=== PATIENT | female | born 1985 | race Caucasian/White ===

== ENCOUNTER 2020-12-28 01:08 | Emergency (ER) | payer OTHER, SELFPAY ==
--- NOTE | 2020-12-28 01:42 | EDPHYS ---
Physician Documentation [facility] Name: Dolores Hood Age: 35 yrs Sex: Female : 1985 Arrival Date: 12/28/2020 Time: 01:14 Bed 10 Private MD: Giovani Perry HPI: 12/28 01:36 This 35 yrs old Female presents to ER via Ambulatory with complaints of BUG cp IN EAR. 01:36 The patient presents with pain, that is acute, possible bug in ear. The complaints cp affect the left ear. Onset: The symptoms/episode began/occurred last night. Associated signs and symptoms: The patient has no apparent associated signs or symptoms. 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 - Social history:: Smoking status: Patient denies any tobacco usage or history of. ROS: 01:37 Constitutional: Negative for body aches, chills, fever. cp 01:37 ENT: Positive for ear pain, possible bug in ear. 01:37 Respiratory: Negative for cough. 01:37 Abdomen/GI: Negative for nausea, vomiting, and diarrhea. 01:37 Neuro: Negative for headache. 01:37 All other systems are negative. Exam: 01:38 Head/Face: Normocephalic, atraumatic. cp 01:38 Constitutional: The patient appears in no acute distress, alert, awake, non-toxic, well developed, well nourished. 01:38 Eyes: Periorbital structures: appear normal, Conjunctiva: normal, no exudate, no injection, Lids and lashes: appear normal, bilaterally. 01:38 ENT: External ear(s): pain with movement, that is mild, of the left ear canal, Ear canal(s): bloody discharge, that is minimal, in the left canal, erythema, of the left canal, mild, swelling, that is minimal, of the left canal, TM's: are normal, no evidence of bulging, no erythema, dullness, on the left, Examination of the other ear shows no obvious abnormality. 01:38 Neck: ROM/movement: is normal, is supple, without pain, no range of motions limitations. 01:38 Chest/axilla: Inspection: normal. 01:38 Cardiovascular: Rate: normal. 01:38 Respiratory: the patient does not display signs of respiratory distress, Respirations: normal. Vital Signs: 01:18 BP 145 / 95; Pulse 99; Resp 18; Temp 98.7; Pulse Ox 100% on R/A; Weight 121.56 kg; wg Height 5 ft. 2 in. (157.48 cm); Pain 0/10; 01:18 Body Mass Index 49.02 (121.56 kg, 157.48 cm) wg MDM: 01:25 Patient medically screened. [facility] 01:39 Differential diagnosis: otitis media, otitis externa, ruptured TM, foreign body, cp cerumen impaction, barotrauma . Data reviewed: vital signs, nurses notes, and as a result, I will discharge patient. Administered Medications: No medications were administered Disposition: 01:45 Chart complete. cp Disposition Summary: 12/28/20 01:41 Discharge Ordered Location: Home cp Problem: new cp Symptoms: are unchanged cp Condition: Stable cp Diagnosis - Unspecified otitis externa, left ear cp Followup: cp - With: Naina Narvaez MD - When: 2 - 3 days - Reason: Worsening of condition Discharge Instructions: - Discharge Summary Sheet cp - Ear Drops, Adult cp - Otitis Externa cp Forms: - Medication Reconciliation Form cp - Thank You Letter cp - Antibiotic Education cp - Prescription Opioid Use cp Prescriptions: - Cortisporin-TC 3.3-3-10-0.5 mg/mL Otic drops,suspension - instill 4 drops by OTIC route every 6 hours for 8-10 days; 1 bottle; Refills: cp 0, Product Selection Permitted Addendum: 12/29/2020 10:03 Co-signature as Attending Physician, Giovani Browne MD I agree with the assessment and c angel plan of care. Signatures: Giovani Browne MD MD cha Page, Corey, PA PA cp Gamba, Liam, RN wg
--- NOTE | 2020-12-28 01:42 | ER ---
Nurse's Notes [facility] Name: Dolores Hood Age: 35 yrs Sex: Female : 1985 Arrival Date: 12/28/2020 Time: 01:14 Bed 10 Private MD: Diagnosis: Unspecified otitis externa, left ear Presentation: 12/28 01:18 Chief complaint: Patient states: Pt states she was awoken to the sound of a bug in her wg left ear. States it sounded like a mosquito. Pt stuck a q-tip in her ear and hasn't hear the bug since. No sign of a bug in the outter or middle ear. No other complaints. Coronavirus screen: Vaccine status: Patient reports being unvaccinated. Ebola Screen: Patient negative for fever greater than or equal to 101.5 degrees Fahrenheit, and additional compatible Ebola Virus Disease symptoms Patient denies exposure to infectious person. Patient denies travel to an Ebola-affected area in the 21 days before illness onset. No symptoms or risks identified at this time. Initial Sepsis Screen: Does the patient meet any 2 criteria? No. Patient's initial sepsis screen is negative. Does the patient have a suspected source of infection? No. Patient's initial sepsis screen is negative. Risk Assessment: Do you want to hurt yourself or someone else? Patient reports no desire to harm self or others. Onset of symptoms was December 28, 2020 at 01:00. 01:18 Method Of Arrival: Ambulatory 01:18 Acuity: HARVEY 4 Triage Assessment: 01:21 General: Appears comfortable, obese, well groomed, well developed, Behavior is appropriate for age, anxious. Pain: Denies pain. 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 - Social history:: Smoking status: Patient denies any tobacco usage or history of. Screenin:35 Abuse screen: Denies threats or abuse. Denies injuries from another. dc2 01:35 Nutritional screening: No deficits noted. Tuberculosis screening: No symptoms or risk dc2 factors identified. Never had TB. Possible symptoms: None. Fall Risk None identified. No fall in past 12 months (0 pts). No secondary diagnosis (0 pts). Assessment: 01:47 Pain: Denies pain. Neuro: No deficits noted. EENT: No deficits noted. Ear canal clear dc2 on clear. Vital Signs: 01:18 BP 145 / 95; Pulse 99; Resp 18; Temp 98.7; Pulse Ox 100% on R/A; Weight 121.56 kg; wg Height 5 ft. 2 in. (157.48 cm); Pain 0/10; 01:18 Body Mass Index 49.02 (121.56 kg, 157.48 cm) ED Course: 01:14 Patient arrived in ED. wm 01:21 Triage completed. wg 01:22 Arm band placed on right wrist. wg 01:25 Giovani Marin PA is PHCP. cp 01:25 Giovani Browne MD is Attending Physician. cp 01:35 Patient has correct armband on for positive identification. Call light in reach. dc2 01:40 Naina Narvaez MD is Referral Physician. cp 01:47 Jordyn Chavez, TRACIE is Primary Nurse. dc2 01:49 No provider procedures requiring assistance completed. dc2 01:49 Patient did not have IV access during this emergency room visit. dc2 Administered Medications: No medications were administered Outcome: 01:41 Discharge ordered by . cp 01:52 Discharged to home ambulatory. dc2 01:52 Condition: stable 01:52 Discharge instructions given to Instructed on discharge instructions, follow up and referral plans. Demonstrated understanding of instructions, medications, Prescriptions given X 1. 01:56 Patient left the ED. dc2 Signatures: Giovani Marin PA PA cp Marsh, Wendy wm Gamba, Liam, RN Jordyn Chavez RN RN dc2
[2020-12-28 02:30] VITALS: BP 145/95; TEMP 98.7; O2SAT 100
== END 2020-12-28 01:56 | disposition home or self-care (01) ==
LOC: ER 01:08
DX: H60.92 Unspecified otitis externa, left ear (principal)
CPT/HCPCS: 99282

== ENCOUNTER 2021-03-02 21:12 | Emergency (ER) | payer OTHER, SELFPAY ==
[2021-03-02 22:43] LABS: SARS-COV-2 RT PCR POSITIVE (NEGATIVE)
--- NOTE | 2021-03-02 23:23 | EDPHYS ---
Physician Documentation [facility] Name: Dolores Hood Age: 35 yrs Sex: Female : 1985 Arrival Date: 03/02/2021 Time: 21:16 Bed 12 Private MD: ED Physician Kalpesh Saeed HPI: 03/02 21:37 This 35 yrs old Female presents to ER via Ambulatory with complaints of Cough, Fever, jmm Headache. 21:37 The patient or guardian reports cough. Onset: The symptoms/episode began/occurred jmm gradually, 1 day(s) ago. Modifying factors: The symptoms are alleviated by nothing, the symptoms are aggravated by nothing. Associated signs and symptoms: Pertinent positives: fever, sore throat. It is unknown whether or not the patient has had similar symptoms in the past. 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 - Social history:: Smoking status: Patient denies any tobacco usage or history of. Patient/guardian denies using alcohol. ROS: 21:37 Constitutional: Positive for body aches, chills. jmm 21:37 Respiratory: Positive for cough. 21:37 All other systems are negative. Exam: 21:37 Head/Face: atraumatic. Eyes: EOMI, no conjunctival erythema appreciated ENT: Moist jmm Mucus Membranes Neck: Trachea midline, Supple Chest/axilla: Normal chest wall appearance and motion. Cardiovascular: Regular rate and rhythm. No edema appreciated Respiratory: Normal respirations, no respiratory distress appreciated Abdomen/GI: Non distended, soft Back: Normal ROM Skin: General appearance color normal MS/ Extremity: Moves all extremities, no obvious deformities appreciated, no edema noted to the lower extremities Neuro: Awake and alert, normal gait Psych: Behavior is normal, Mood is normal, Patient is cooperative and pleasant 21:37 Constitutional: The patient appears in no acute distress, alert, awake. Vital Signs: 21:33 BP 129 / 80; Pulse 90; Resp 18; Temp 98.4(O); Pulse Ox 98% on R/A; Weight 112.04 kg; ld1 Height 5 ft. 2 in. (157.48 cm); Pain 0/10; 21:33 Body Mass Index 45.18 (112.04 kg, 157.48 cm) ld1 MDM: 22:22 Patient medically screened. [facility] 23:19 Data reviewed: vital signs, nurses notes. [facility] 23:19 Counseling: I had a detailed discussion with the patient and/or guardian regarding: the [facility] historical points, exam findings, and any diagnostic results supporting the discharge/admit diagnosis, lab results, the need for outpatient follow up, to return to the emergency department if symptoms worsen or persist or if there are any questions or concerns that arise at home. 03/02 21:36 Order name: COVID-19/FLU A+B (Document "Date of Onset" if Symptomatic); Complete Time: ld1 23:03 03/02 21:36 Order name: Strep; Complete Time: 23:03 ld1 03/02 22:16 Order name: Throat Culture EDMS Administered Medications: No medications were administered Disposition: 03/03 01:00 Co-signature as Attending Physician, Kalpesh Saeed MD I agree with the assessment and rn plan of care. Attestation: The patient's history, exam findings, diagnostics, and a summary of any interventions or procedures was reviewed in detail with Terrence FOSTER. Disposition Summary: 03/02/21 23:22 Discharge Ordered Location: Home [facility] Condition: Stable [facility] Diagnosis - Coronavirus infection, unspecified [facility] Followup: jm - With: Private Physician - When: 2 - 3 days - Reason: Recheck today's complaints, Continuance of care, Re-evaluation by your physician Discharge Instructions: - Discharge Summary Sheet suzie - MEIRID-19 [facility] Forms: - Medication Reconciliation Form [facility] - Thank You Letter suzie - Antibiotic Education m - Prescription Opioid Use [facility] - Work release form lp1 Prescriptions: - albuterol sulfate 90 mcg/actuation Inhalation HFA aerosol inhaler - inhale 2 puff by INHALATION route every 4 hours; 1 Pump; Refills: 0, Product [facility] Selection Permitted Signatures: Dispatcher Singulex Terrence Joya PA PA jmm Nieto, Roman, MD MD rn Melanie Kidd RN RN ld1 Corrections: (The following items were deleted from the chart) 03/02 21:35 21:35 Allergies: No Known Allergies; ld1 ld1
--- NOTE | 2021-03-02 23:23 | ER ---
Nurse's Notes [facility] Name: Dolores Hood Age: 35 yrs Sex: Female : 1985 Arrival Date: 03/02/2021 Time: 21:16 Bed 12 Private MD: Diagnosis: Coronavirus infection, unspecified Presentation: 03/02 21:33 Chief complaint: Patient states: Last night I began having body aches, headache, fever, ld1 diarrhea, burning in my chest when I take large breaths, and cough. Coronavirus screen: Client presents with at least one sign or symptom that may indicate coronavirus-19. Standard/surgical mask placed on the client. Ebola Screen: No symptoms or risks identified at this time. Initial Sepsis Screen: Does the patient meet any 2 criteria? No. Patient's initial sepsis screen is negative. Does the patient have a suspected source of infection? No. Patient's initial sepsis screen is negative. Risk Assessment: Do you want to hurt yourself or someone else? Patient reports no desire to harm self or others. Onset of symptoms was March 02, 2021. 21:33 Method Of Arrival: Ambulatory ld1 21:33 Acuity: HARVEY 4 ld1 Triage Assessment: 21:35 Headache History: Denies prior headaches. General: Appears in no apparent distress. ld1 comfortable, Behavior is calm, cooperative, appropriate for age. Pain: Denies pain. EENT: No signs and/or symptoms were reported regarding the EENT system. Neuro: Level of Consciousness is awake, alert, obeys commands. Respiratory: Airway is patent Respiratory effort is even, unlabored. 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 - Social history:: Smoking status: Patient denies any tobacco usage or history of. Patient/guardian denies using alcohol. Screenin:23 Abuse screen: Denies threats or abuse. Denies injuries from another. Nutritional lp1 screening: No deficits noted. Tuberculosis screening: No symptoms or risk factors identified. Fall Risk None identified. Assessment: 23:23 General: Appears in no apparent distress. Behavior is calm, cooperative. Pain: lp1 Complains of pain in general body. Neuro: Level of Consciousness is awake, alert, obeys commands. Cardiovascular: Patient's skin is warm and dry. Respiratory: Respiratory effort is even, unlabored. Derm: Skin is pink, warm \\T\\ dry. Musculoskeletal: No deficits noted. Vital Signs: 21:33 BP 129 / 80; Pulse 90; Resp 18; Temp 98.4(O); Pulse Ox 98% on R/A; Weight 112.04 kg; ld1 Height 5 ft. 2 in. (157.48 cm); Pain 0/10; 21:33 Body Mass Index 45.18 (112.04 kg, 157.48 cm) ld1 ED Course: 21:16 Patient arrived in ED. ja2 21:24 Terrence Crawford PA is PHCP. [facility] 21:24 Kalpesh Saeed MD is Attending Physician. [facility] 21:35 Triage completed. ld1 21:36 Arm band placed on left wrist. ld1 21:42 COVID-19/FLU A+B (Document "Date of Onset" if Symptomatic) Sent. ld1 21:42 Strep Sent. ld1 23:23 Tricia Olsen, RN is Primary Nurse. lp1 23:23 Patient has correct armband on for positive identification. lp1 23:23 No provider procedures requiring assistance completed. Patient did not have IV access lp1 during this emergency room visit. Administered Medications: No medications were administered Outcome: 23:22 Discharge ordered by . [facility] 23:38 Discharged to home ambulatory. lp1 23:38 Condition: good 23:38 Discharge instructions given to patient, Instructed on discharge instructions, follow up and referral plans. medication usage, Demonstrated understanding of instructions, follow-up care, medications, Prescriptions given X 1. 23:38 Patient left the ED. lp1 Signatures: Terrence Crawford PA PA jmm Pena, Laura, RN RN lp1 Melanie Kidd RN RN ld1 Landy Herrera ja2 Corrections: (The following items were deleted from the chart) 21:35 21:35 Allergies: No Known Allergies; ld1 ld1
[2021-03-02 23:43] VITALS: BP 129/80; TEMP 98.4; O2SAT 98
== END 2021-03-02 23:38 | disposition home or self-care (01) ==
LOC: ER 21:12
DX: U07.1 COVID-19 (principal); Z88.0 Allergy status to penicillin; Z88.2 Allergy status to sulfonamides; Z91.040 Latex allergy status; Z91.048 Other nonmedicinal substance allergy status
CPT/HCPCS: 87070; 87081; 0240U; 99283

== ENCOUNTER 2021-03-07 12:27 | Emergency (ER) | payer OTHER, SELFPAY | END 2021-03-07 13:48 | disposition left against medical advice (07) | LOC: ER 12:27 | DX: Z02.9 Encounter for administrative examinations, unspecified (principal) ==

== ENCOUNTER 2021-03-07 15:11 | Emergency (ER) | payer SELFPAY ==
[2021-03-07] MEDS ORDERED: ONDANSETRON 4 MG/2 ML VIAL ONE (20:10)
[2021-03-07] MEDS ORDERED: NA CHLORIDE 0.9% 1,000 ML ONE ×2 (20:10→21:15)
[2021-03-07 20:33] LABS: Absolute Lymphocytes (CBC) 1.6 K/uL (0.7-4.9); Hematocrit 39.8 % (36.0-45.0); Lymphocytes % 33.4 % (15.3-44.8); MPV 8.3 fL (7.6-11.3); RBC Red Blood Cell Count 4.89 M/uL (3.86-4.86)
[2021-03-07 20:55] LABS: BUN Blood Urea Nitrogen 7 mg/dL (7-18); Bicarbonate 23 mmol/L (21-32); Glucose Level 99 mg/dL (74-106); Sodium Level 139 mmol/L (136-145)
[2021-03-07 21:03] LABS: Potassium 3.6 mmol/L (3.5-5.1)
[2021-03-07] MEDS ORDERED: IBUPROFEN 400 MG TAB ONE (21:15)
--- NOTE | 2021-03-07 22:25 | EDPHYS ---
Physician Documentation [facility] Name: Dolores Hood Age: 35 yrs Sex: Female : 1985 Arrival Date: 03/07/2021 Time: 15:21 Bed DIS1 Private MD: ED Physician Ramo Connell HPI: 03/07 20:14 This 35 yrs old Female presents to ER via EMS with complaints of Abdominal Pain, pkl Vomiting/Diarrhea. 20:14 The patient presents to the emergency department with nausea, that is moderate, pkl vomiting, diarrhea. Onset: The symptoms/episode began/occurred 3 day(s) ago. Patient tested positive for Covid 19 on 03/02/21. Has been vomiting and having diarrhea for 3 days. Unable to keep any fluid down.. 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 - Social history:: Smoking status: Patient denies any tobacco usage or history of. ROS: 20:14 Eyes: Negative for injury, pain, redness, and discharge, ENT: Negative for injury, pkl pain, and discharge, Neck: Negative for injury, pain, and swelling, Cardiovascular: Negative for chest pain, palpitations, and edema, Respiratory: Negative for shortness of breath, cough, wheezing, and pleuritic chest pain. 20:14 Abdomen/GI: Positive for nausea, vomiting, and diarrhea. 20:14 Back: Negative for acute changes. 20:14 : Negative for urinary symptoms. 20:14 MS/extremity: Negative for acute changes. 20:14 Skin: Negative for rash. 20:14 Neuro: Negative for altered mental status, loss of consciousness. Exam: 20:14 Head/Face: Normocephalic, atraumatic. Eyes: Pupils equal round and reactive to light, pkl extra-ocular motions intact. Lids and lashes normal. Conjunctiva and sclera are non-icteric and not injected. Cornea within normal limits. Periorbital areas with no swelling, redness, or edema. ENT: Nares patent. No nasal discharge, no septal abnormalities noted. Tympanic membranes are normal and external auditory canals are clear. Oropharynx with no redness, swelling, or masses, exudates, or evidence of obstruction, uvula midline. Mucous membranes moist. Neck: Trachea midline, no thyromegaly or masses palpated, and no cervical lymphadenopathy. Supple, full range of motion without nuchal rigidity, or vertebral point tenderness. No Meningismus. Chest/axilla: Normal chest wall appearance and motion. Nontender with no deformity. No lesions are appreciated. Cardiovascular: Regular rate and rhythm with a normal S1 and S2. No gallops, murmurs, or rubs. Normal PMI, no JVD. No pulse deficits. Respiratory: Lungs have equal breath sounds bilaterally, clear to auscultation and percussion. No rales, rhonchi or wheezes noted. No increased work of breathing, no retractions or nasal flaring. 20:14 Abdomen/GI: Bowel sounds: active, Palpation: soft, mild abdominal tenderness, in the right upper quadrant and left upper quadrant. 20:14 Back: Exam negative for acute changes. 20:14 : Exam negative for acute changes. 20:14 Musculoskeletal/extremity: Exam is negative for acute changes. 20:14 Skin: Exam negative for rash. 20:14 Neuro: Orientation: is normal, Mentation: is normal, Cranial nerves: grossly normal, Motor: is normal. Vital Signs: 16:57 BP 101 / 62; Pulse 107; Temp 100.0(O); Pulse Ox 96% on R/A; Weight 112.04 kg; Height 5 ap3 ft. 2 in. (157.48 cm); 22:52 BP 100 / 61; Pulse 97; Resp 18; Pulse Ox 95% on R/A; oe 16:57 Body Mass Index 45.18 (112.04 kg, 157.48 cm) ap3 MDM: 20:06 Patient medically screened. pkl 22:17 Data reviewed: vital signs, nurses notes, lab test result(s). ED course: Patient pkl feeling better. No vomiting or diarrhea noted in ER. Discussed lab results with patient. Advised to follow up with her PCP in 2 to 3 days. return if necessary. Patient understood instructions. 03/07 19:35 Order name: CBC with Diff; Complete Time: 21:19 kb 03/07 19:35 Order name: Basic Metabolic Panel; Complete Time: 21:19 kb 03/07 20:12 Order name: Blood Culture Adult (2) pkl 03/07 20:12 Order name: Lactate; Complete Time: 21:19 pkl 03/07 19:35 Order name: IV Start; Complete Time: 20:22 kb Administered Medications: 20:22 Drug: Zofran (Ondansetron) 4 mg Route: IVP; Site: right antecubital; [facility] 20:22 Drug: NS 0.9% 1000 ml Route: IV; Rate: 125 ml/hr; Site: right antecubital; 5 20:23 Drug: NS 0.9% 1000 ml Route: IV; Rate: 1000 ml; Site: right antecubital; 5 Disposition Summary: 03/07/21 22:23 Discharge Ordered Location: Home pkl Problem: new pkl Symptoms: have improved pkl Condition: Stable pkl Diagnosis - Positive Covid 19. Gastroenteritis. Dehydration pkl Followup: pkl - With: Private Physician - When: 2 - 3 days - Reason: Re-evaluation by your physician Discharge Instructions: - Discharge Summary Sheet pkl Forms: - Medication Reconciliation Form pkl - Thank You Letter pkl - Antibiotic Education pkl - Prescription Opioid Use pkl Prescriptions: - Zofran 4 mg Oral Tablet - take 1 tablet by ORAL route every 12 hours As needed; 10 tablet; Refills: 0, pkl Product Selection Permitted Signatures: Dispatcher [employer] Jenelle Moreno FNP-C FNP-Ckb Lam, Pin, MD MD pkl Danitza Dowling, RN RN ap3 Landy Best RN RN jh5
--- NOTE | 2021-03-07 22:25 | ER ---
Nurse's Notes [facility] Name: Dolores Hood Age: 35 yrs Sex: Female : 1985 Arrival Date: 03/07/2021 Time: 15:21 Bed DIS1 Private MD: Diagnosis: Positive Covid 19. Gastroenteritis. Dehydration Presentation: 03/07 16:57 Chief complaint: Patient states: she tested positive for covid 03/02/2021. She reports ap3 not being able to tolerate foods since 03/04/21. Patient states she is weak and feels dehydrated. Coronavirus screen: Client reports previous positive COVID test result. Ebola Screen: No symptoms or risks identified at this time. Initial Sepsis Screen: Does the patient meet any 2 criteria? No. Patient's initial sepsis screen is negative. Does the patient have a suspected source of infection? No. Patient's initial sepsis screen is negative. Risk Assessment: Do you want to hurt yourself or someone else? Patient reports no desire to harm self or others. Onset of symptoms was March 02, 2021. 16:57 Method Of Arrival: EMS: [facility] ap3 16:57 Acuity: HARVEY 3 ap3 Triage Assessment: 17:00 General: Appears uncomfortable, Behavior is calm, cooperative. Pain: Complains of pain ap3 in generalized aches and pains all over Pain currently is 6 out of 10 on a pain scale. Pain began gradually. Neuro: Level of Consciousness is awake, alert, obeys commands, Oriented to person, place, time, situation, Weakness. Respiratory: Airway is patent Respiratory effort is even, unlabored. GI: Reports nausea, vomiting. 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 - Social history:: Smoking status: Patient denies any tobacco usage or history of. Screenin:01 Abuse screen: Denies threats or abuse. Nutritional screening: No deficits noted. ap3 Tuberculosis screening: No symptoms or risk factors identified. 20:10 Fall Risk None identified. bb Assessment: 20:10 General: Appears in no apparent distress. uncomfortable, Behavior is calm, cooperative. bb Neuro: Level of Consciousness is awake, alert, obeys commands, Oriented to person, place, time, situation. Cardiovascular: Capillary refill < 3 seconds Patient's skin is warm and dry. Respiratory: Airway is patent Respiratory effort is even, unlabored, Respiratory pattern is regular. GI: Reports lower abdominal pain, upper abdominal pain, diarrhea, vomiting. Derm: Skin is pink, warm \T\ dry. 22:45 Reassessment: Patient is alert, oriented x 3, equal unlabored respirations, skin bb warm/dry/pink. pt verbalized understanding of and agrees to plan of care discharge instructions given pt ambulated with steady gait to exit Patient states feeling better. Vital Signs: 16:57 BP 101 / 62; Pulse 107; Temp 100.0(O); Pulse Ox 96% on R/A; Weight 112.04 kg; Height 5 ap3 ft. 2 in. (157.48 cm); 22:52 BP 100 / 61; Pulse 97; Resp 18; Pulse Ox 95% on R/A; oe 16:57 Body Mass Index 45.18 (112.04 kg, 157.48 cm) ap3 ED Course: 15:21 Patient arrived in ED. mr 16:59 Triage completed. ap3 20:06 Ramo Connell MD is Attending Physician. pkl 20:10 Patient has correct armband on for positive identification. bb 20:10 No provider procedures requiring assistance completed. bb 20:22 Landy Best, RN is Primary Nurse. jh5 22:46 IV discontinued, intact, bleeding controlled, No redness/swelling at site. Pressure bb dressing applied. Administered Medications: 20:22 Drug: Zofran (Ondansetron) 4 mg Route: IVP; Site: right antecubital; jh5 20:22 Drug: NS 0.9% 1000 ml Route: IV; Rate: 125 ml/hr; Site: right antecubital; jh5 20:23 Drug: NS 0.9% 1000 ml Route: IV; Rate: 1000 ml; Site: right antecubital; jh5 Outcome: 22:23 Discharge ordered by . pkl 22:46 Discharged to home ambulatory. bb 22:46 Condition: stable 22:46 Discharge instructions given to patient, Instructed on discharge instructions, follow up and referral plans. medication usage, Demonstrated understanding of instructions, follow-up care, medications, Prescriptions given X 1. 23:08 Patient left the ED. bb Signatures: Ramo Connell MD MD pkl Rivera, Mary mr RossiLili RN RN bb Armando Zuleta Amanda RN RN ap3 Landy Best RN RN jh5
[2021-03-07 23:28] VITALS: TEMP 100
[2021-03-07 23:33] VITALS: BP 100/61; O2SAT 95
== END 2021-03-07 23:08 | disposition home or self-care (01) ==
LOC: ER 15:11
DX: E86.0 Dehydration (principal); K52.9 Noninfective gastroenteritis and colitis, unspecified; Z88.0 Allergy status to penicillin; Z88.2 Allergy status to sulfonamides
CPT/HCPCS: 36415; 80048; 83605; 85025; 87040; 96374; 99283; J2405; J7030